=== PATIENT | female | born 1985 | race Caucasian/White ===

== ENCOUNTER 2016-12-07 08:45 | Emergency (ER) | payer OTHER ==
[~2016-12-07] VITALS: Ht 162.6 cm; Wt 81.2 kg
[2016-12-07 12:15] VITALS: BP 120/60
== END 2016-12-07 12:15 | disposition home or self-care (01) ==
LOC: ED 08:45
DX: R10.31 Right lower quadrant pain (principal); R11.0 Nausea; Z88.5 Allergy status to narcotic agent
CPT/HCPCS: 87491; 87591